=== PATIENT | male | born 1980 | race Two or more races ===

== ENCOUNTER 2017-04-24 00:50 | Emergency (ER) | payer SELFPAY ==
[~2017-04-24] VITALS: Ht 177.8 cm; Wt 109.9 kg
[2017-04-24 00:51] VITALS: BP 141/98
[2017-04-24] MEDS ORDERED: OXYcodone/APAP 10/325MG TABLET PO ONE (03:30)
[2017-04-24] MEDS ORDERED: KETOROLAC 30 MG/1 ML IM ONE (03:30)
== END 2017-04-24 03:55 | disposition home or self-care (01) ==
LOC: ED 03:45
DX: M62.830 Muscle spasm of back (principal)
CPT/HCPCS: 99283